=== PATIENT | female | born 1985 | race Caucasian/White ===

== ENCOUNTER 2021-01-08 20:05 | Emergency (ER) | payer OTHER ==
[~2021-01-08] VITALS: Ht 170.2 cm; Wt 70.8 kg
[2021-01-08 20:09] VITALS: BP 126/75
[2021-01-08] MEDS ORDERED: ALBUTEROL HFA MDI 90 MCG/ACTUATION 8 GM INH ONE (20:15)
--- NOTE | 2021-01-08 20:19 | NUR ---
PT TAKEN TO BED 10
--- NOTE | 2021-01-08 20:22 | NUR ---
XRAY AT BEDSIDE.
--- NOTE | 2021-01-08 20:27 | NUR ---
RT AT BEDSIDE.
[2021-01-08] MEDS ORDERED: ALBUTEROL SULFATE/IPRATROPIU 3 ML SOL IH ONE (20:30)
[2021-01-08] MEDS ORDERED: AZIT250T11 PO (20:50)
[2021-01-08] MEDS ORDERED: AMOXICILLIN 500 MG CAP PO ONE (20:50)
[2021-01-08] MEDS ORDERED: AMOX500T3 PO (20:50)
[2021-01-08] MEDS ORDERED: AZITHROMYCIN 250 MG TAB PO ONE (20:50)
[2021-01-08] MEDS ORDERED: ALBU0.0912 IH (20:50)
--- NOTE | 2021-01-08 20:55 | NUR ---
SEE COMPLETE ASSESSMENT.
--- NOTE | 2021-01-08 20:59 | NUR ---
PT ERMD, DO NOT ADMINISTER VENTOLIN INHALER.
[2021-01-08] MEDS ORDERED: ACET-8386 PO (21:09)
--- NOTE | 2021-01-08 21:20 | NUR ---
Patient discharged with v/s stable. Written and verbal after care instructions given and explained. Patient alert, oriented and verbalized understanding of instructions. Ambulatory with steady gait. All questions addressed prior to discharge. ID band removed. Patient advised to follow up with PMD. Rx of PROVENTIL, AMOXICILLIN, AZITHROMYCIN, NORCO given. Patient educated on indication of medication including possible reaction and side effects. Opportunity to ask questions provided and answered.
== END 2021-01-08 21:20 | disposition home or self-care (01) ==
LOC: MED 20:05
DX: U07.1 COVID-19 (principal); J12.82 Pneumonia due to coronavirus disease 2019
CPT/HCPCS: 71045; 94640; 99283